=== PATIENT | male | born 1980 | race Caucasian/White ===

== ENCOUNTER 2017-01-23 09:12 | Outpatient (CLI) | payer OTHER, SELFPAY ==
--- NOTE | 2017-01-23 11:08 | RAD ---
FOUR VIEWS RIGHT KNEE: Date: 01-23-17 History: Twisted right knee on Friday. FINDINGS/IMPRESSION: There is no evidence of a fracture, dislocation, or other osseous abnormality involving the right kn ee. POS: [facility]
== END 2017-01-23 09:13 | disposition home or self-care (01) ==
LOC: MADRAD 09:12
PROVIDERS: ATTEND Family Medicine
DX: M25.561 Pain in right knee (principal)

== ENCOUNTER 2018-08-20 21:40 | Emergency (ER) | payer SELFPAY ==
[2018-08-20] MEDS ORDERED: Ibuprofen 800 MG TAB ONE (21:58)
[2018-08-20] MEDS ORDERED: Clindamycin 150 MG CAP ONE (21:58)
== END 2018-08-20 22:10 | disposition home or self-care (01) ==
LOC: MADERS 21:40
DX: K04.7 Periapical abscess without sinus (principal); F17.210 Nicotine dependence, cigarettes, uncomplicated; Z79.899 Other long term (current) drug therapy
CPT/HCPCS: 99282

== ENCOUNTER 2019-12-31 21:58 | Emergency (ER) | payer SELFPAY ==
[2019-12-31] MEDS ORDERED: Sodium Chloride 0.9% 1,000 ML ONE (22:28)
[2019-12-31] MEDS ORDERED: Morphine 4 MG/ML VIAL ONE (22:28)
[2019-12-31 22:38] LABS: Bilirubin Negative (Negative); Blood, Urine Large (Negative); Clarity Clear (Clear); Glucose, Urine (Dipstick) Negative (Negative); Ketone, Urine Negative (Negative); Leukocyte Small (Negative); Nitrite Negative (Negative); Protein, Urine (Dipstick) Negative (Neg-Trace); Specific Gravity, Urine 1.025 (1.005-1.030); pH, Urine 5.5 (5.0-9.0)
[2019-12-31 22:40] LABS: #Basophils 0.1 thou/uL (0.0-0.2); #Eosinphils 0.2 thou/uL (0.0-0.7); #Monocytes 0.9 thou/uL (0.11-0.59); #Neutrophils 6.4 thou/uL (1.40-6.50); %Eosinophils 1.8 % (0.0-10.0); %Lymphocytes 28.3 % (21.0-51.0); %Monocytes 8.2 % (0.0-10.0); %Neutrophils 60.8 % (42.0-75.0); Hemoglobin 13.9 g/dL (14.0-18.0); Mean Corpuscular HGB CONC 32.8 g/dL (32.0-36.0); Mean Corpuscular Hemoglobin 29.2 pg (27.0-31.0); Mean Corpuscular Volume 88.8 fL (78.0-98.0); Mean Platelet Volume 7.3 fL (7.4-10.4); Platelet Count 305 thou/uL (130-400); RBC Distribution Width 11.5 % (11.5-14.5); Red Blood Cell (RBC) Count 4.76 mill/uL (4.70-6.10); White Blood Cell (WBC) Count 10.5 thou/uL (4.8-10.8)
[2019-12-31] MEDS ORDERED: Prochlorperazine 10 MG/2 ML VIAL ONE (22:44)
[2019-12-31] MEDS ORDERED: Ketorolac Tromethamine 30 MG/ML VIAL ONE (22:44)
[2019-12-31 22:49] LABS: Bacteria/HPF Rare-Few HPF (None Seen)
[2019-12-31 22:50] LABS: Mucous/LPF Rare LPF (<2+)
[2019-12-31 22:58] LABS: Anion Gap 14 mmol/L (10-20); BUN (Urea Nitrogen) 14 mg/dL (8.9-20.6); Calc. Creatinine Clearance 0 mL/min (70-130); Calcium 8.5 mg/dL (7.8-10.44); Carbon Dioxide 26 mmol/L (22-29); Chloride 106 mmol/L (98-107); Estimated GFR-MDRD 80; Glucose 122 mg/dL (70-105); Potassium 3.5 mmol/L (3.5-5.1); Sodium 142 mmol/L (136-145)
== END 2019-12-31 23:36 | disposition home or self-care (01) ==
LOC: MADERS 21:58
DX: N20.0 Calculus of kidney (principal); F17.210 Nicotine dependence, cigarettes, uncomplicated
CPT/HCPCS: 80048; 81003; 81015; 85025; 96361; 96374; 96375; J0780; J1885; J2270; J7050

== ENCOUNTER 2023-04-11 11:48 | Emergency (ER) | payer OTHER, SELFPAY ==
[2023-04-11] MEDS ORDERED: HYDROcodone/Acetaminophen 10/325 mg Tablet ONE (12:41)
== END 2023-04-11 12:46 | disposition home or self-care (01) ==
LOC: MADERS 11:48
DX: K04.7 Periapical abscess without sinus (principal); K02.9 Dental caries, unspecified; F17.210 Nicotine dependence, cigarettes, uncomplicated
CPT/HCPCS: 99282

== ENCOUNTER 2023-12-06 19:57 | Emergency (ER) | payer OTHER ==
[~2023-12-06 19:57] MED LIST: Iopamidol 370 76% 100 ML VIAL ONE; Sodium Chloride 0.9% 100 ML BAG ONE
[2023-12-06] MEDS ORDERED: Ondansetron PF 4 MG/2 ML Vial ONE (20:24)
[2023-12-06] MEDS ORDERED: Sodium Chloride 0.9% 1,000 ML ONE (20:24)
[2023-12-06 20:57] LABS: ALT (SGPT) 22 U/L (8-55); AST (SGOT) 18 U/L (5-34); Alkaline Phosphatase 110 U/L (40-110); Anion Gap 16 mmol/L (10-20); BUN (Urea Nitrogen) 16 mg/dL (8.9-20.6); Bilirubin, Total 0.6 mg/dL (0.2-1.2); Calc. Creatinine Clearance 0 mL/min (70-130); Calcium 9.2 mg/dL (7.8-10.44); Carbon Dioxide 23 mmol/L (22-29); Chloride 106 mmol/L (98-107); Estimated GFR 87; Globulin 3.1 g/dL (2.4-3.5); Glucose 105 mg/dL (70-105); Potassium 3.8 mmol/L (3.5-5.1); Protein, Total 7.1 g/dL (6.0-8.3); Sodium 141 mmol/L (136-145)
[2023-12-06] MEDS ORDERED: diphenhydrAMINE 50 MG/ML VIAL ONE (20:58)
[2023-12-06 21:03] LABS: Troponin I Less than 0.010 ng/mL (< 0.028)
[2023-12-06 21:05] LABS: Influenza A by NAA Not Detected (NotDetected); Influenza B by NAA Not Detected (NotDetected); SARS-CoV-2 NAA Rapid Test Not Detected (NotDetected)
[2023-12-06 21:15] LABS: Hematocrit 49.2 % (42.0-52.0); Hemoglobin 15.4 g/dL (14.0-18.0); Mean Corpuscular HGB CONC 31.3 g/dL (32.0-36.0); Mean Corpuscular Hemoglobin 29.1 pg (27.0-31.0); Platelet Count 315 10x3/uL (130-400); RBC Distribution Width 12.4 % (11.5-14.5); Red Blood Cell (RBC) Count 5.28 mill/uL (4.70-6.10); White Blood Cell (WBC) Count 12.6 10x3/uL (4.8-10.8)
[2023-12-06 21:20] LABS: Band 1 % (5-11); Eosinophils 6 % (0-10); Lymphocytes 24 % (21-51); MDiff Complete? YES; Monocytes 3 % (0-10); Neutrophil 66 % (42-75)
[2023-12-06 22:03] LABS: Bilirubin Negative (Negative); Blood, Urine Negative (Negative); Clarity Clear (Clear); Glucose, Urine (Dipstick) Negative (Negative); Ketone, Urine Negative (Negative); Leukocyte Negative (Negative); Nitrite Negative (Negative); Protein, Urine (Dipstick) Negative (Neg-Trace); Urobilinogen 0.2 mg/dL (Less than 2)
[2023-12-06 22:04] LABS: Amphetamine Detected (NotDetected); Bacteria/HPF Rare-Few HPF (None Seen); Barbiturates Screen Not Detected (NotDetected); Benzodiazepine Screen Not Detected (NotDetected); CAUTI Indications for Culture Dysuria,urgency,freq; Cocaine Metabolite Screen Not Detected (NotDetected); Methadone Not Detected (NotDetected); Methamphetamine Detected (NotDetected); Opiate Screen Not Detected (NotDetected); Oxycodone Screen Not Detected (NotDetected); Phencyclidine (PCP) Not Detected (NotDetected); RBC/HPF 0-3 HPF (0-3); Squamous Epithelial 0-3 HPF (0-3); THC/Cannabinoid Screen Not Detected (NotDetected); Tricyclic Screen Not Detected (NotDetected); WBC/HPF 0-3 HPF (0-3)
[2023-12-06 22:05] LABS: Urine Culture Reflex No No
== END 2023-12-06 22:29 | disposition home or self-care (01) ==
LOC: MADERS 19:57
DX: T65.91XA Toxic effect of unspecified substance, accidental (unintentional), initial encounter (principal); R21 Rash and other nonspecific skin eruption; F17.210 Nicotine dependence, cigarettes, uncomplicated
CPT/HCPCS: 71046; 71275; 80053; 80306; 81001; 83880; 84484; 85025; 85379; 93005; 96361; 96374; J1200; J2405; J7030; Q9967